=== PATIENT | male | born 1990 | race Caucasian/White ===

== ENCOUNTER 2021-08-24 12:15 | Emergency (ER) | payer OTHER, MEDICAID, SELFPAY ==
[2021-08-24] VITALS (9 sets, daily range): BP systolic 116–132; BP diastolic 65–73; PULSE 72–82; RESP 15–22; TEMP 36.6; O2SAT 96–100; BMI 23.8
--- NOTE | 2021-08-24 12:27 | DI.RAD.S_ITS ---
PROCEDURE: XR CHEST 1V INDICATIONS: chest pain TECHNIQUE: One view of the chest was acquired. COMPARISON: None. FINDINGS: Surgical changes and devices: None. Lungs and pleura: Mild airspace consolidation is present at the left lung base. The lungs are otherwise clear. No pleural effusion or pneumothorax. Mediastinum: Mediastinal contours appear normal. Heart size is normal. Bones and chest wall: No suspicious bony lesions. Overlying soft tissues appear unremarkable. IMPRESSION: Left basilar airspace opacities. Differential considerations include atelectasis, aspiration, and infection. Short interval followup is recommended with resolution of the patient's symptoms to ensure there is no underlying pulmonary pathology. Dictated by: Mary Carmen Galicia M.D. on 08/24/2021 at 12:44 Approved by: Mary Carmen Galicia M.D. on 08/24/2021 at 12:48
[2021-08-24 13:12] LABS: Add Manual Diff / Slide Review NO; Basophils Absolute Auto 100 /uL (0-100); Basophils Percent Auto 0.9 % (0-2); Eosinophils Absolute Auto 100 /uL (0-450); Eosinophils Percent Auto 1.8 % (2-4); Hematocrit 40.6 % (41-53); Hemoglobin 13.6 g/dL (13.5-17.5); Lymphocytes Absolute Auto 1600 /uL (1100-4500); Lymphocytes Percent Auto 21.9 % (25-40); Mean Corpuscular HGB Conc 33.5 % (30-36); Mean Corpuscular Volume 80.5 fL (80-100); Monocytes Absolute Auto 600 /uL (0-900); Monocytes Percent Auto 7.9 % (3-14); Neutrophils Absolute Auto 4800 /uL (1500-7000); Neutrophils Percent Auto 67.5 % (50-75); Platelet Count 244 X10^3/uL (150-400); Red Blood Cell Count 5.04 X10^6/uL (4.5-5.9); Red Cell Distribution Width 14.2 % (11.6-14.8); White Blood Cell Count 7.1 X10^3/uL (4.5-11.0)
[2021-08-24 13:34] LABS: Alanine Aminotransferase 17 IU/L (<50); Albumin Globulin Ratio 1.1 (1.0-2.8); Alkaline Phosphatase 139 U/L (38-126); Aspartate Aminotransferase 29 IU/L (17-59); BUN Creatinine Ratio 7.9 (6-22); Bilirubin Total 0.3 mg/dL (0.2-1.3); Blood Urea Nitrogen 8 mg/dL (9-20); Carbon Dioxide 29 mmol/L (22-32); Chloride 108 mmol/L (98-107); Creatine Kinase 97 U/L (55-170); Estimated Glomerular Filt Rate > 60 mL/min (>60); Globulin 3.8 g/dL (1.7-4.1); Glucose 94 mg/dL (70-100); HEMOLYSIS 19 (0-50); Lipase 46 U/L (23-300); Magnesium 2.1 mg/dL (1.6-2.3); Potassium 4.6 mmol/L (3.4-5.1); Sodium 143 mmol/L (137-145); Total Protein 7.8 g/dL (6.3-8.2)
--- NOTE | 2021-08-24 13:40 | ED.CHESTPAIN ---
HPI - Chest Pain General Chief Complaint: Chest Pain Stated Complaint: Chest pains, rt side Time Seen by Provider: 08/24/21 13:03 Source: patient Mode of arrival: Ambulatory Limitations: no limitations History of Present Illness HPI narrative: Patient is a 31-year-old male who presents at the request of walk-in clinic for chest discomfort. It has been ongoing on the right side for about 2 weeks sometimes it is worse when he rolls over to the right side. He denies any shortness of breath with exertion. He went to the walk-in clinic today who noticed some ST elevation and OH depression concern for possible pericarditis and sent here for further workup. He states that he did have like some upper respiratory like symptoms about a month ago and then developed some chest discomfort. He did not test for COVID. He says those symptoms have since improved but he has had some lingering chest discomfort. He denies any recent travel or hemoptysis. No prior history of DVT or PE. Patient also states that he does have sex with other men and he has had a rectal rash ongoing for about a month as well. It is extremely pruritic. Walk-in clinic did culture for herpes. The patient states he is concerned about STDs. [facility]. He denies any penile discharge or painful or frequent urination but he does have a right inguinal groin lymph node. Related Data Previous Rx's Medication Instructions Recorded prednisone 20 mg tablet 40 mg PO DAILY 5 Days #10 tab 08/24/21 Allergies Allergy/AdvReac Type Severity Reaction Status Date / Time No Known Drug Allergies Allergy Verified 08/24/21 12:24 Review of Systems Review of Systems Narrative: GENERAL: Denies chills, fatigue, malaise, fever, sweats, travel HEENT: Denies sinus pain, ear pain, sore throat, difficulty swallowing, neck pain RESPIRATORY: Denies dyspnea, cough, wheezing, hemoptysis, sputum. CARDIOVASCULAR: See HPI GASTROINTESTINAL: Denies nausea, vomiting, abdominal pain, diarrhea, constipation, melena. : Denies dysuria, frequency, incontinence, hematuria, urinary retention, flank pain. MUSCULOSKELETAL: Denies weakness, joint pain, or bony pain SKIN: See HPI NEUROLOGIC: Denies weakness, dizziness, headache, numbness, change in speech, confusion PSYCHIATRIC: No concerning psychosocial issues. 12 point review of systems is negative except for those stated above and HPI Patient History Social History Smoking Status: Current every day smoker Smoking Status: Current every day smoker alcohol intake frequency: holidays/special occasions only Substance Use Type: does not use and marijuana Exam Initial Vital Signs Initial Vital Signs: Vital Signs Temperature 97.8 F 08/24/21 12:22 Pulse Rate 82 08/24/21 12:22 Respiratory Rate 15 08/24/21 12:22 Blood Pressure 125/65 08/24/21 12:22 Pulse Oximetry 99 08/24/21 12:22 GENERAL: Well-appearing, well-nourished and in no acute distress. HEENT: Head atraumatic,EOMI, pupils reactive, face symmetric, moist mucous membranes CARDIOVASCULAR: Regular rate and rhythm without murmurs, rubs or gallops. Pain not really reproducible to palpation RESPIRATORY: Breath sounds equal bilaterally, no wheezes rales or rhonchi. ABDOMEN: Soft, nontender. Normoactive bowel sounds all 4 quadrants. No guarding or rebound. RECTAL: Erythematous between the cheeks with actually some skin breakdown. No gross discharge from rectum, no significant swelling onto buttocks no fluctuation no vesicles EXTREMITIES: Normal range of motion, no clubbing or edema. Neurovascularly intact NEUROLOGICAL: Alert and oriented x4.Normal gait and speech. SKIN: Warm, dry, no laceration, no petechiae, no rashes or lesions. Scores PERC Score Age greater than or equal to 50 years: No Heart rate greater than or equal to 100 bpm: No Room Air O2 Sat less than 95%: No Unilateral leg swelling: No Recent trauma or surgery: No Hemoptysis: No Prior PE or DVT: No Hormone Use: No Total PERC Score: 0 Course Orders Ordered: ED Orders 08/24/21 12:27 XR chest 1V Stat EKG-12 Lead Stat 08/24/21 13:05 D Dimer Stat 08/24/21 13:08 Complete Blood Count AUTO DIFF Stat Comprehensive Metabolic Panel Stat Lipase Stat Magnesium Stat Troponin & CK Cardiac Panel Stat 08/24/21 14:16 Chlamydia Gonorrhea PCR -URINE Stat UA Complete [Urinalysis and Microscopic] Stat 08/24/21 14:20 Chlamydia/Gonoc/Myco Genital Stat 08/24/21 14:39 COVID19 -Nasal RAPID/Pre-Proc Stat Discontinued Medications Methylprednisolone (Methylprednisolone 125 Mg/2 Ml Vial) 125 mg IV NOW ONE Stop: 08/24/21 14:00 Last Admin: 08/24/21 14:16 Dose: 125 mg Documented by: AUGUSTIN Vital Signs Vital signs: Vital Signs - 8 hr 08/24/21 12:55 08/24/21 13:00 08/24/21 13:30 Pulse Rate 73 76 74 Respiratory Rate 22 21 Blood Pressure 132/72 128/71 118/70 Pulse Oximetry 99 100 99 08/24/21 14:00 08/24/21 14:30 08/24/21 15:00 Pulse Rate 73 79 72 Respiratory Rate 21 21 Blood Pressure 116/73 Pulse Oximetry 100 98 08/24/21 15:30 08/24/21 16:00 Pulse Rate 74 73 Respiratory Rate 21 18 Blood Pressure Pulse Oximetry 96 96 MDM - Chest Pain Lab Data Result diagrams: 08/24/21 13:08 08/24/21 13:08 Labs: Lab Results 08/24/21 08/24/21 08/24/21 Range/Units 13:05 13:08 13:08 WBC 7.1 (4.5-11.0) X10^3/uL RBC 5.04 (4.5-5.9) X10^6/uL Hgb 13.6 (13.5-17.5) g/dL Hct 40.6 L (41-53) % MCV 80.5 (80-100) fL MCH 27.0 (26-34) PG MCHC 33.5 (30-36) % RDW 14.2 (11.6-14.8) % Plt Count 244 (150-400) X10^3/uL Neut % (Auto) 67.5 (50-75) % Lymph % (Auto) 21.9 L (25-40) % Alexander % (Auto) 7.9 (3-14) % Eos % (Auto) 1.8 L (2-4) % Baso % (Auto) 0.9 (0-2) % Neut # (Auto) 4800 (4890-1785) /uL Lymph # (Auto) 1600 (4547-7413) /uL Alexander # (Auto) 600 (0-900) /uL Eos # (Auto) 100 (0-450) /uL Baso # (Auto) 100 (0-100) /uL D-Dimer 207 (<230) ng/mL Sodium 143 (137-145) mmol/L Potassium 4.6 (3.4-5.1) mmol/L Chloride 108 H (98-107) mmol/L Carbon Dioxide 29 (22-32) mmol/L BUN 8 L (9-20) mg/dL Creatinine 1.01 (0.66-1.25) mg/dL Estimated GFR > 60 (>60) mL/min BUN/Creatinine Ratio 7.9 (6-22) Glucose 94 (70-100) mg/dL Calcium 9.0 (8.4-10.2) mg/dL Magnesium 2.1 (1.6-2.3) mg/dL Total Bilirubin 0.3 (0.2-1.3) mg/dL AST 29 (17-59) IU/L ALT 17 (<50) IU/L Alkaline Phosphatase 139 H (38-126) U/L Total Creatine Kinase 97 (55-170) U/L CK-MB (CK-2) TNP CK-MB (CK-2) Rel Index TNP Troponin I < 0.012 (0.01-0.034) ng/mL Total Protein 7.8 (6.3-8.2) g/dL Albumin 4.0 (3.5-5.0) g/dL Globulin 3.8 (1.7-4.1) g/dL Albumin/Globulin Ratio 1.1 (1.0-2.8) Lipase 46 (23-300) U/L Urine Color Urine Appearance Urine pH (4.5-8.0) Ur Specific [place] (1.000-1.035) Urine Protein (Negative) Urine Glucose (UA) (Negative) g/dL Urine Ketones (NEGATIVE) Urine Occult Blood (Negative) Urine Nitrate (Negative) Urine Bilirubin (NEGATIVE) Urine Urobilinogen (0.2) E.U./dL Ur Leukocyte Esterase (NEGATIVE) Urine RBC (0-5/HPF) Urine WBC (0-5/HPF) Urine Bacteria (None) Ur Culture Indicated? Ur Chlamydia DNA (PCR) SARS-CoV-2 (PCR) (Negative) N gonorrhoeae DNA (PCR) 08/24/21 08/24/21 08/24/21 Range/Units 14:16 14:16 14:39 WBC (4.5-11.0) X10^3/uL RBC (4.5-5.9) X10^6/uL Hgb (13.5-17.5) g/dL Hct (41-53) % MCV (80-100) fL MCH (26-34) PG MCHC (30-36) % RDW (11.6-14.8) % Plt Count (150-400) X10^3/uL Neut % (Auto) (50-75) % Lymph % (Auto) (25-40) % Alexander % (Auto) (3-14) % Eos % (Auto) (2-4) % Baso % (Auto) (0-2) % Neut # (Auto) (9922-6045) /uL Lymph # (Auto) (4352-1874) /uL Alexander # (Auto) (0-900) /uL Eos # (Auto) (0-450) /uL Baso # (Auto) (0-100) /uL D-Dimer (<230) ng/mL Sodium (137-145) mmol/L Potassium (3.4-5.1) mmol/L Chloride (98-107) mmol/L Carbon Dioxide (22-32) mmol/L BUN (9-20) mg/dL Creatinine (0.66-1.25) mg/dL Estimated GFR (>60) mL/min BUN/Creatinine Ratio (6-22) Glucose (70-100) mg/dL Calcium (8.4-10.2) mg/dL Magnesium (1.6-2.3) mg/dL Total Bilirubin (0.2-1.3) mg/dL AST (17-59) IU/L ALT (<50) IU/L Alkaline Phosphatase (38-126) U/L Total Creatine Kinase (55-170) U/L CK-MB (CK-2) CK-MB (CK-2) Rel Index Troponin I (0.01-0.034) ng/mL Total Protein (6.3-8.2) g/dL Albumin (3.5-5.0) g/dL Globulin (1.7-4.1) g/dL Albumin/Globulin Ratio (1.0-2.8) Lipase (23-300) U/L Urine Color Yellow Urine Appearance Clear Urine pH 7.0 (4.5-8.0) Ur Specific [place] 1.020 (1.000-1.035) Urine Protein Negative (Negative) Urine Glucose (UA) Trace H (Negative) g/dL Urine Ketones Negative (NEGATIVE) Urine Occult Blood Negative (Negative) Urine Nitrate Negative (Negative) Urine Bilirubin Negative (NEGATIVE) Urine Urobilinogen 0.2 (0.2) E.U./dL Ur Leukocyte Esterase Negative (NEGATIVE) Urine RBC None seen (0-5/HPF) Urine WBC None seen (0-5/HPF) Urine Bacteria None seen (None) Ur Culture Indicated? Cult not indicated Ur Chlamydia DNA (PCR) Not detected SARS-CoV-2 (PCR) Negative (Negative) N gonorrhoeae DNA (PCR) Not detected Imaging Data Chest x-ray: Radiologist's Impression: Signed Patient: Tre Greenberg MR#: [id number] : 1990 Acct:[id number] Age/Sex: 31 / M Date of Service: 08/24/21 Loc: ED Accession Number: [id number] ?? Procedure: XR chest 1V Ordering Provider: Alisson William D.O. PROCEDURE:? XR CHEST 1V ? INDICATIONS:? chest pain ? TECHNIQUE:? One view of the chest was acquired.? ? COMPARISON:? None. ? FINDINGS:? ? Surgical changes and devices:? None.? ? Lungs and pleura:? Mild airspace consolidation is present at the left lung base.? The lungs are otherwise clear.? No pleural effusion or pneumothorax. ? Mediastinum:? Mediastinal contours appear normal.? Heart size is normal.? ? Bones and chest wall:? No suspicious bony lesions.? Overlying soft tissues appear unremarkable.? ? IMPRESSION: ? Left basilar airspace opacities.? Differential considerations include atelectasis, aspiration, and infection. Short interval followup is recommended with resolution of the patient's symptoms to ensure there is no underlying pulmonary pathology. ? ? ? Dictated by: Mary Carmen Galicia M.D. on 08/24/2021 at 12:44 ? ? ECG Data Interpretation: Sinus rhythm rate 86 OH interval 186 QRS [address] elevation noted in leads 2 3 AVF with OH depression in lead to sorry and AVF no other changes no priors to compare MDM Narrative Medical decision making narrative: The patient's chest symptoms concerning for possible pericarditis. Blood work is overall reassuring symptoms have actually improved with Solu-Medrol. Steroid was chosen over NSAID to help possibly with a rectal rash as well. Patient has a negative D-dimer low PERC score unlikely to be pulmonary embolism no need for CT scan at this time. Patient does not have any sort of productive cough. Bedside ultrasound done by myself does not show any pericardial effusion. Is possible that chest discomfort may be related to a mild pericarditis secondary to upper respiratory viral-like infection. He is COVID negative and those symptoms have resolved. The patient does have a rectal rash she has been applying [id number] hemorrhoid cream to it without any relief. It is obvious that he is now having some skin breakdown. Urine is sent for urine gonorrhea chlamydia and there is a specific gonorrhea chlamydia swab of the rectum. Patient has good outpatient follow-up for further STD testing such as hepatitis and HIV. Not convinced that this rectal rash is related to STD may be more of an allergic-type reaction. However he has already tried topical steroid will try course prednisone to help treat pericarditis and pruritus. Patient overall appears well. All questions have been addressed. Discharge Plan Departure Patient Disposition: Home Clinical Impression: Pericarditis, Rash Instructions: DI for Pericarditis, DI for Rash Activity Restrictions/Additional Instructions: *You have been diagnosed with pericarditis and rash *What to do: At this time you will need outpatient follow-up and probably an outpatient echocardiogram of your heart. This will need to be ordered by primary care provider. [facility]. Currently gonorrhea chlamydia urine test is negative however rectal culture is still pending. This will take a couple of days you may call in 2-3 days if you do not hear from us. Keep area clean and dry as best you can apply ointment 1 to 2 times a day to help with skin breakdown *Continue to take medications as directed Prednisone 40 mg once a day for 5 days start tomorrow *Follow up with your primary care provider in 2-3 days or call [phone] *Return to ER if you should have increasing shortness of breath fever worsening rash, or any new, worsening or concerning symptoms Prescriptions: New prednisone 20 mg tablet 40 mg PO DAILY 5 Days Qty: 10 0RF
[2021-08-24 13:44] LABS: Troponin I < 0.012 ng/mL (0.01-0.034)
[2021-08-24 14:11] LABS: D Dimer 207 ng/mL (<230)
[2021-08-24] MEDS: methylPREDNISolone 125 MG/2 ML VIAL IV (14:16)
[2021-08-24 14:20] LABS: Appearance Urine UA CLEAR; Bilirubin Urine UA NEGATIVE (NEGATIVE); Color Urine UA YELLOW; Glucose Urine UA TRACE g/dL (Negative); Ketones Urine UA NEGATIVE (NEGATIVE); Leukocyte Esterase Urine UA NEGATIVE (NEGATIVE); Nitrite Urine UA NEGATIVE (Negative); Occult Blood Urine UA NEGATIVE (Negative); Protein Urine UA NEGATIVE (Negative); Urobilinogen Urine UA 0.2 E.U./dL (0.2)
[2021-08-24 14:25] LABS: Bacteria Urine None Seen; Culture Indicated Urine Cult Not Indicated; RBC Urine None Seen (0-5/HPF); WBC Urine None Seen (0-5/HPF)
[2021-08-24 15:24] LABS: COVID19 -Nasal RAPID Negative (Negative)
[2021-08-24 15:49] LABS: Urine N gonorrhoeae NOT DETECTED
[2021-08-24 15:53] LABS: Urine Chlamydia NOT DETECTED
[2021-08-26 23:14] LABS: Chlamydia trachomatis Negative (Negative); Mycoplasma genitalium Negative (Negative); Neisseria gonorrhoeae Negative (Negative)
== END 2021-08-24 16:17 | disposition home or self-care (01) ==
PROVIDERS: Emergency Provider Emergency Medicine
DX: I31.9 Disease of pericardium, unspecified (principal); R21 Rash and other nonspecific skin eruption; Z20.822 Contact with and (suspected) exposure to COVID-19
CPT/HCPCS: 36415; 71045; 80053; 81001; 82550; 83690; 83735; 84484; 85025; 85379; 87491; 87563; 87591; 87635; 93005; 93010; 96374; 99284; C9803; J2930